=== PATIENT | male | born 1985 | race Caucasian/White ===

== ENCOUNTER 2016-10-09 18:09 | Emergency (ER) | payer BC ==
[~2016-10-09] VITALS: Ht 177.8 cm; Wt 141.2 kg
[2016-10-09 18:19] VITALS: TEMP 36.5; Ht 177.8 cm; Wt 141.2 kg
[2016-10-09] MEDS ORDERED: OXYCODONE HCL IR 5 MG TAB (IMMEDIATE RELEASE) PO STA (18:32)
[2016-10-09] MEDS ORDERED: ONDANSETRON 4MG OD TAB PO STA (18:32)
[2016-10-09] MEDS ORDERED: CETI10TA73 PO (19:07)
[2016-10-09] MEDS ORDERED: DILT240C48 PO (19:07)
[2016-10-09] MEDS ORDERED: HYDR25TA4 PO (19:07)
[2016-10-09] MEDS ORDERED: OMEP20TA14 PO (19:07)
--- NOTE | 2016-10-09 19:26 | DIAGNOSTIC IMAGING REPORT ---
LEFT ELBOW MIN 3 VIEWS ROUTINE CLINICAL HISTORY: Left elbow pain s/p hyper extension injury COMPARISON: None. DISCUSSION: The bones and joint spaces appear intact. There is no evidence of fracture, dislocation or bony disease. There is no evidence for soft tissue swelling. IMPRESSION: Negative study. Electronically signed by: Kp Soto M.D. 10/09/2016 7:24 PM Dictated Date/Time: 10/09/2016 7:24 PM
--- NOTE | 2016-10-09 20:31 | EMERGENCY ROOM VISIT NOTE ---
History First contact with patient: 18:25 Chief Complaint: ELBOW PAIN/INJURY Stated Complaint: SHARP PAIN L EBLOW, UNABLE TO MOVE, PAIN NAUSEA History of Present Illness The patient is a 31 year old male who presents to the Emergency Room via private vehicle accompanied by with complaints of "sharp pain left elbow, unable to move, pain, nausea". The patient states that 30 minutes prior to arrival, he was lifting a heavy grill out of the bed of his truck when he hyperextended the left elbow, and felt/heard a pop in the left elbow. He points to the left antecubital space as a location of the pain that he rates as a 6/10. Pain is worse with movement. He notes minimal numbness/tingling in the distal extremity. He does have a history of bicep tendon tear on the right. Review of Systems A complete 6-point Review of Systems was discussed with the patient, with pertinent positives and negatives listed in the History of Present Illness. All remaining Review of Systems questions can be considered negative unless otherwise specified. Past Medical/Surgical History Biceps tendon tear on the right. Family History No pertinent family history. Social History Smoking Status: Never Smoker Marital Status: Housing Status: lives with family Occupation Status: employed Current/Historical Medications Scheduled Diltiazem Hcl Coated Beads (Cartia Xt), 240 MG PO DAILY Hydrochlorothiazide (Hctz), 25 MG PO DAILY Omeprazole Magnesium (Prilosec Otc), 20 MG PO DAILY Ondasetron Odt (Zofran Odt), 4 MG SL Q6H Scheduled PRN Cetirizine Hcl (All Day Allergy), 10 MG PO DAILY PRN for Allergy Symptoms Oxycodone Ir (Roxicodone Ir), 1-2 TAB PO Q4H PRN for Pain Allergies Coded Allergies: Lisinopril (Verified Allergy, Unknown, cough, 10/09/16) Physical Exam Vital Signs Date Time Temp Pulse Resp B/P Pulse Ox O2 Delivery O2 Flow Rate FiO2 10/09/16 21:36 82 18 167/102 94 10/09/16 18:19 36.5 89 16 154/94 95 Room Air Physical Exam VITAL SIGNS - Vital signs and nursing notes were reviewed. GENERAL -31-year-old male appearing his stated age who is in no acute distress. Communicates well with provider and answers questions appropriately. SKIN - Without rashes. No petechial rashes. EXTREMITIES - No clubbing or peripheral cyanosis. No pretibial edema present. He is neurovascularly intact left upper extremity. There is tenderness in the distal medial bicep region, left antecubital space and left forearm. +5/5 strength noted in UE/LE bilaterally. Medical Decision & Procedures ER Provider Diagnostic Interpretation: LEFT HUMERUS MIN 2 VIEWS ROUTINE CLINICAL HISTORY: ARM PAIN pain COMPARISON: None. DISCUSSION: The bones and joint spaces appear intact. There is no evidence of fracture, dislocation or bony disease. There is no evidence for soft tissue swelling. IMPRESSION: Negative study. Electronically signed by: Kp Soto M.D. 10/09/2016 8:41 PM Dictated Date/Time: 10/09/2016 8:41 PM LEFT FOREARM 2 VIEWS ROUTINE CLINICAL HISTORY: ARM PAIN pain COMPARISON: None. DISCUSSION: The bones and joint spaces appear intact. There is no evidence of fracture, dislocation or bony disease. There is no evidence for soft tissue swelling. IMPRESSION: Negative study. Electronically signed by: Kp Soto M.D. 10/09/2016 8:44 PM Dictated Date/Time: 10/09/2016 8:43 PM LEFT ELBOW MIN 3 VIEWS ROUTINE CLINICAL HISTORY: Left elbow pain s/p hyper extension injury COMPARISON: None. DISCUSSION: The bones and joint spaces appear intact. There is no evidence of fracture, dislocation or bony disease. There is no evidence for soft tissue swelling. IMPRESSION: Negative study. Electronically signed by: Kp Soto M.D. 10/09/2016 7:24 PM Dictated Date/Time: 10/09/2016 7:24 PM Medications Administered Medications (Trade) Dose Ordered Sig/Cherelle Route Start Time Stop Time Status Last Admin Dose Admin Oxycodone HCl (Roxicodone Immediate Rel Tab) 10 mg NOW STAT PO 10/09/16 18:32 10/09/16 18:34 DC 10/09/16 19:31 10 MG Ondansetron HCl (Zofran Odt) 4 mg NOW STAT PO 10/09/16 18:32 10/09/16 18:34 DC 10/09/16 19:31 4 MG Oxycodone HCl (Roxicodone Immediate Rel 5MG Home Pack) 1 homepack UD STAT PO 10/09/16 21:09 10/09/16 21:11 DC 10/09/16 21:25 1 HOMEPACK Ondansetron HCl (ZOFRAN ODT 4MG Home Pack) 1 homepack UD STAT PO 10/09/16 21:09 10/09/16 21:11 DC 10/09/16 21:25 1 [facility] Medical Decision Patient was seen and evaluated as above. After obtaining a thorough history and physical examination radiographs was obtained of left elbow and the patient was provided with OxyIR and Zofran for his pain and nausea. Nausea began after the onset of pain, and he denies abdominal pain. He was reevaluated and was feeling much better after the oxycodone. Radiograph results as above. These were negative other left elbow. I was concerned for potential occult fracture therefore did obtain long bone radiographs. These were also negative. MRI was discussed with the patient, and it was decided this time to not pursue the MRI. I suspect the patient has either a sprain of the region or potential subtle biceps tendon rupture. He will be slinged, and provided with a short-term supply of pain medication and Zofran for his pain and nausea. He is to follow up with his orthopedic group in [place]. He seemed happy with plan of care, was educated upon worrisome symptoms which to return, had questions answered prior to discharge and was discharged home in good condition. In the evaluation and treatment of this patient, the following differential diagnoses were considered: Forearm Contusion, Radial Head Fracture, Radial Styloid Process Fracture, Ulnar Styloid Process Fracture, Radius Fracture, Ulnar Fracture, Tennis Elbow, Golfer's Elbow, or Elbow Fracture. [place] Drug Monitoring Program Search Results: patient reviewed within database, no issues identified Impression Primary Impression: Pain in left elbow Departure Information Dispostion Home / Self-Care Condition GOOD Prescriptions Ondasetron Odt (ZOFRAN ODT) 4 Mg Tab 4 MG SL Q6H for Nausea, #6 TAB Prov: Dev Rajput PA-C 10/09/16 Oxycodone Ir (Roxicodone Ir) 5 Mg Tab 1-2 TAB PO Q4H Y for Pain, #20 TAB For Initial Treatment Prov: Dev Rajput PA-C 10/09/16 Referrals No Doctor, Assigned (PCP) Patient Instructions [facility] Additional Instructions You have been treated in the Emergency Department for Elbow Pain. You have received pain medicine in the emergency department which impairs your ability to operate a vehicle. It is illegal for you to drive after receiving these medicines. You have been prescribed OXY IR to be used for pain control. This is a narcotic medication. You cannot drive or consume alcohol while on this medicine. This medicine should only be used for pain that cannot be controlled with over-the- counter pain medicines. You've been prescribed Zofran for your nausea. For pain control, you can use the following [id number] medicines (if >12 yo): - Regular strength (325mg/tab) Tylenol (acetaminophen) 2 tabs every 4-6 hours as needed. Do not exceed 12 tablets in a 24 hour period. Avoid taking more than 3 grams (3000 mg) of Tylenol per day. This includes any other sources of acetaminophen you may take on a regular basis. - Regular strength (200 mg/tab) Advil (ibuprofen) 1-2 tabs every 4-6 hours as needed. Do not exceed a dose of 3200 mg per day. If this is a recent injury (<24 hrs), ice can be applied to the area of pain for the first 3 days to help decrease pain and inflammation. You have indicated that you have an established orthopedic surgeon. You should call to schedule a follow-up visit from today's Emergency Department visit as soon as possible. Keep the sling/splint in place until evaluated by Orthopedics. Return to the Emergency Department if your current symptoms worsen despite treatment course outlined above, or if you develop any of the following symptoms : intractable pain despite aforementioned treatment course or new onset of numbness or tingling of the arm.
--- NOTE | 2016-10-09 20:43 | DIAGNOSTIC IMAGING REPORT ---
LEFT HUMERUS MIN 2 VIEWS ROUTINE CLINICAL HISTORY: ARM PAIN pain COMPARISON: None. DISCUSSION: The bones and joint spaces appear intact. There is no evidence of fracture, dislocation or bony disease. There is no evidence for soft tissue swelling. IMPRESSION: Negative study. Electronically signed by: Kp Soto M.D. 10/09/2016 8:41 PM Dictated Date/Time: 10/09/2016 8:41 PM
--- NOTE | 2016-10-09 20:46 | DIAGNOSTIC IMAGING REPORT ---
LEFT FOREARM 2 VIEWS ROUTINE CLINICAL HISTORY: ARM PAIN pain COMPARISON: None. DISCUSSION: The bones and joint spaces appear intact. There is no evidence of fracture, dislocation or bony disease. There is no evidence for soft tissue swelling. IMPRESSION: Negative study. Electronically signed by: Kp Soto M.D. 10/09/2016 8:44 PM Dictated Date/Time: 10/09/2016 8:43 PM
[2016-10-09] MEDS ORDERED: ONDA4TAB10 SL (21:06)
[2016-10-09] MEDS ORDERED: OXYC1TAB3 PO (21:06)
[2016-10-09] MEDS ORDERED: ONDANSETRON HOME PACK 4MG OD TAB PO STA (21:09)
[2016-10-09] MEDS ORDERED: OXYCODONE IR HOME PACK PO STA (21:09)
[2016-10-09 21:36] VITALS: BP 167/102; PULSE 82; O2SAT 94
== END 2016-10-09 21:38 | disposition home or self-care (01) ==
LOC: C.EDB 18:11 → C.EDD 21:38
DX: M25.522 Pain in left elbow (principal); X50.0XXA Overexertion from strenuous movement or load, initial encounter; Y93.89 Activity, other specified; Z79.899 Other long term (current) drug therapy